=== PATIENT | female | born 1990 | race Caucasian/White ===

== ENCOUNTER 2020-11-25 00:01 | Emergency (ER) | payer OTHER ==
[2020-11-25] MEDS ORDERED: SODIUM CHLORIDE 1,000 ML IV STA ×2 (00:43→05:39)
[2020-11-25] MEDS ORDERED: ACETAMINOPHEN 1000 MG/100 ML VIAL (NON FORMULARY) IVPB ONE (00:44)
[2020-11-25 00:45] VITALS: BMI 26.6
[2020-11-25] MEDS ORDERED: VANCOMYCIN 1,000 MG in DEXTROSE 5%-WATER - 250 ML IVPB ONE (00:45)
[2020-11-25] MEDS ORDERED: CLINDAMYCIN 600MG PREMIX IVPB 600 MG/50 ML BAG IVPB ONE ×3 (00:48→01:00)
[2020-11-25] MEDS ORDERED: ACETAMINOPHEN INJECTION 100 ML IVPB ONE (01:00)
[2020-11-25 01:39] LABS: HEMATOCRIT 23.8 % (32.4-45.2); HEMOGLOBIN 8.2 GM/dL (10.7-15.3); MCH 27.8 pg (25.7-33.7); MCHC 34.4 g/dl (32.0-36.0); MEAN CELL VOLUME 80.7 fl (80-96); PLATELET COUNT 346 10^3/uL (134-434); RBC 2.95 M/mm3 (3.60-5.2); RDW 13.5 % (11.6-15.6)
[2020-11-25 01:50] LABS: INR 1.29 (0.83-1.09); PROTHROMBIN TIME (PATIENT) 15.7 SEC (9.7-13.0)
[2020-11-25 01:53] LABS: ACTIVATED PTT 28.2 SECONDS (25.2-36.5)
[2020-11-25 01:59] LABS: CHLORIDE 103 mmol/L (98-107); SODIUM 136 mmol/L (136-145)
[2020-11-25 02:01] LABS: ALBUMIN 2.4 g/dl (3.4-5.0); ANION GAP 10 MMOL/L (8-16); CALCIUM 8.6 mg/dL (8.5-10.1); CO2 24 mmol/L (21-32)
[2020-11-25 02:02] LABS: BLOOD UREA NITROGEN 9.8 mg/dL (7-18); GLUCOSE,RANDOM 96 mg/dL (74-106)
[2020-11-25 02:04] LABS: CREATININE 0.6 mg/dL (0.55-1.3); SGOT/AST 33 U/L (15-37); SGPT/ALT 58 U/L (13-61)
[2020-11-25 02:06] LABS: BILIRUBIN,TOTAL 0.7 mg/dL (0.2-1); TOT PROT 6.1 g/dl (6.4-8.2)
[2020-11-25 02:07] LABS: ALK PHOS 92 U/L (45-117)
[2020-11-25 02:41] LABS: ANISOCYTOSIS 0; MACROCYTOSIS 0; PLATELET ESTIMATE NORMAL; ROULEAU 1+
[2020-11-25] MEDS ORDERED: VANCOMYCIN 1 GRAM (PRE-DOCKED) 1,000 MG/250 ML BAG IVPB ONE (03:30)
[2020-11-25] MEDS ORDERED: morphine CARPU-JECT 4 MG/1 ML DISP.SYRIN IVPUSH ONE (04:28)
[2020-11-25] MEDS ORDERED: MORPHINE SULFATE 2 MG/ML VIAL ONE (04:39)
[2020-11-25 08:26] VITALS: BP 119/74; PULSE 120; TEMP 99.4
== END 2020-11-25 08:34 | disposition short-term general hospital (02) ==
LOC: JER 00:01
PROC: 3E033GC Introduction of Other Therapeutic Substance into Peripheral Vein, Percutaneous Approach (ICD-10-PCS; principal; 2020-11-25)
DX: L02.31 Cutaneous abscess of buttock (principal)
CPT/HCPCS: 36415; 71045-TC-FY; 72193-TC; 80053; 83605; 84484; 84703; 85025; 85610; 85730; 87040; 96361; 96365; 96368; 96375; 99285-25; C9803; J0131; U0003; U0005

== ENCOUNTER 2021-12-31 20:50 | Emergency (ER) | payer OTHER ==
[2021-12-31 21:13] VITALS: BP 133/94; PULSE 99; RESP 20; TEMP 98.3; BMI 25.8
[2022-01-01] MEDS ORDERED: ACETAMINOPHEN 500 MG TABLET (FP) PO ONE (00:01)
[2022-01-01] MEDS ORDERED: ACETAMINOPHEN 325 MG TABLET (FP) ONE (00:23)
== END 2022-01-01 03:32 | disposition left against medical advice (07) ==
LOC: JERFT 20:50 → JER 20:50
DX: S00.83XA Contusion of other part of head, initial encounter (principal); S80.211A Abrasion, right knee, initial encounter; S80.212A Abrasion, left knee, initial encounter; T76.11XA Adult physical abuse, suspected, initial encounter; Y04.8XXA Assault by other bodily force, initial encounter
CPT/HCPCS: 70450-TC; 70486-TC; 71046-TC-FY; 73564-TC-RT-FY; 99284-25